=== PATIENT | male | born 1950 | race Caucasian/White ===

== ENCOUNTER 2018-08-20 21:47 | Inpatient (IN) | payer OTHER ==
[~2018-08-20] VITALS: Ht 182.8 cm; Wt 110.5 kg
--- NOTE | ~2018-08-20 | EKG ---
[place], [place] ELECTROCARDIOGRAM REPORT NAME: BAO PAUL UNIT #: [id number] ROOM: 424 DOCTOR: EDITH DRAFT REPORT BIRTHDATE: [birth year] [facility] Test Date: 2018-08-20 Test Time: 22:18:06 Pat Name: BAO PAUL Department: Room: 424 Gender: M Dat Instructor: : 1950 Requested By: SANTOSH ODONNELL Order Number: [id number] Reading MD: Lata Mojica Measurements Intervals [place] Rate: 52 P: 25 [place]: 182 QRS: 64 QRSD: 103 T: 52 QT: 446 QTc: 415 Interpretive Statements Sinus bradycardia No previous ECG available for comparison Electronically Signed On 08-23-2018 11:51:37 PDT by Lata Mojica CM:EKGRPT:ELECTROCARDIOGRAM REPORT [id number] 1151 SANTOSH DELAROSAANY DRAFT REPORT SANTOSH ODONNELL MD
--- NOTE | ~2018-08-20 | EKG ---
[place], [place] ELECTROCARDIOGRAM REPORT NAME: BAO PAUL UNIT #: [id number] ROOM: 424 DOCTOR: EDITH DRAFT REPORT BIRTHDATE: [birth year] [facility] Test Date: 2018-08-20 Test Time: 21:51:12 Pat Name: BAO PAUL Department: Room: 424 Gender: M Electromechanisms Design Drafter: : 1950 Requested By: SANTOSH ODONNELL Order Number: [id number] Reading MD: Lata Mojica Measurements Intervals [place] Rate: 60 P: 60 MD: 175 QRS: 69 QRSD: 106 T: 49 QT: 442 QTc: 442 Interpretive Statements Sinus rhythm Ventricular trigeminy No previous ECG available for comparison Electronically Signed On 08-23-2018 11:51:16 PDT by Lata Mojica CM:EKGRPT:ELECTROCARDIOGRAM REPORT 1151 SANTOSH ODONNELL MD EPIPHANY DRAFT REPORT SANTOSH ODONNELL MD
--- NOTE | ~2018-08-20 | EKG ---
[place], [place] ELECTROCARDIOGRAM REPORT NAME: BAO PAUL UNIT #: [id number] ROOM: 424 DOCTOR: EDITH DRAFT REPORT BIRTHDATE: [birth year] [facility] Test Date: 2018-08-21 Test Time: 00:37:00 Pat Name: BAO PAUL Department: Room: 424 Gender: M Director [employer]: : 1950 Requested By: SANTOSH ODONNELL Order Number: [id number] Reading MD: Lata Mojica Measurements Intervals [place] Rate: 54 P: 57 [place]: 184 QRS: 65 QRSD: 104 T: 64 QT: 464 QTc: 440 Interpretive Statements Sinus rhythm Ventricular trigeminy No previous ECG available for comparison Electronically Signed On 08-23-2018 11:52:36 PDT by Lata Mojica CM:EKGRPT:ELECTROCARDIOGRAM REPORT 0037 1152 SANTOSH ODONNELL MD EPIPHANY DRAFT REPORT SANTOSH ODONNELL MD
--- NOTE | ~2018-08-20 | ST ---
[place], [place] EXERCISE STRESS TEST REPORT NAME: BAO PAUL [facility] #: [id number] UNIT #: [id number] ROOM: 424 DOCTOR: PATRICK EDMONDS,PRAFUL BIRTHDATE: [birth year] DOS: 08/21/2018 TREADMILL TEST REASON FOR TEST: Sinus bradycardia and PVCs and hypertension. PHYSICAL EXAMINATION NECK: Supple. LUNGS: Clear air entry. HEART: Regular rhythm. PROTOCOL: Familia protocol. Total stress time 7 minutes. Maximum heart rate of 138, which is 90% target heart rate. Peak blood pressure 154/80. SYMPTOMS: The patient with chest pain. EKG: Resting EKG showed sinus rhythm, occasional PVCs. Stress EKG showed PVCs and early stress and resolution of PVCs in the mid to peak stress test, no ischemia. Total METs, 8.3 METs. CONCLUSION: Normal treadmill stress test. No chest pain, no ischemia. The patient had PVCs at rest, which were resolved in the stress, achieved 90% target heart rate, 8.3 METs. Low risk Perkins treadmill score of +7. POST-STRESS COMPLICATIONS: None. PRAFUL NGUYEN MD CM:STRESS:EXERCISE STRESS TEST REPORT [id number] PRAFUL NGUYEN MD
--- NOTE | ~2018-08-20 | EKG ---
[place], [place] ELECTROCARDIOGRAM REPORT NAME: BAO PAUL UNIT #: [id number] ROOM: 424 DOCTOR: EDITH DRAFT REPORT BIRTHDATE: [birth year] [facility] Test Date: 2018-08-21 Test Time: 03:38:38 Pat Name: BAO PAUL Department: Room: 424 Gender: M [employer] Source Intelligence Technician: : 1950 Requested By: SANTOSH ODONNELL Order Number: [id number] Reading MD: Lata Mojica Measurements Intervals [place] Rate: 81 P: 132 [place]: 217 QRS: 86 QRSD: 96 T: 60 QT: 433 QTc: 503 Interpretive Statements Sinus rhythm Multiple ventricular premature complexes Borderline prolonged [place] interval Borderline right axis deviation No previous ECG available for comparison Electronically Signed On 08-23-2018 11:53:02 PDT by Lata Mojica CM:EKGRPT:ELECTROCARDIOGRAM REPORT [id number] 1153 SANOTSH ODONNELL MD EPIPHANY DRAFT REPORT SANTOSH ODONNELL MD
[2018-08-20 21:49] VITALS: BP 135/80
[2018-08-20 22:09] LABS: BASO # 0.1 10*3/uL (0.0-0.1); BASO % 0.7 % (0.0-1.0); EOS # 0.2 10*3/uL (0.0-0.4); HEMATOCRIT 46.3 % (42.0-52.0); HEMOGLOBIN 15.6 g/dl (14.0-18.0); LYMPH # 2.8 10*3/uL (1.3-4.4); LYMPH % 36.7 % (27.0-41.0); MEAN CELL VOLUME 90.3 fl (80.0-94.0); MEAN CORPUSCULAR HGB 30.4 pg (27.0-31.0); MEAN CORPUSCULAR HGB CONC 33.7 g/dl (33.0-37.0); MEAN PLATELET VOLUME 10.4 fl (9.6-12.3); MONO # 0.7 10*3/uL (0.1-1.0); MONO % 9.5 % (3.0-9.0); NEUT # 3.8 10*3/uL (2.3-7.9); NEUT % 50.7 % (47.0-73.0); PLATELET COUNT AUTOMATED 203 10*3/uL (130-400); RED BLOOD COUNT 5.13 10*6/uL (4.50-5.90); RED CELL DISTRI WIDTH 12.8 % (0-14.5); WHITE BLOOD COUNT 7.6 10*3/uL (4.8-10.8)
[2018-08-20 22:19] LABS: ACT PARTIAL THROMBO TIME 26.4 SECONDS (20.0-32.1); INTERNATIONAL NORM RATIO 0.9 (2.0-3.5)
[2018-08-20 22:20] VITALS: BP 137/72
[2018-08-20 22:26] LABS: ALBUMIN 3.9 gm/dl (3.1-4.5); ALKALINE PHOSPHATASE 101 U/L (45-117); BUN 12 mg/dl (7-24); CHLORIDE 107 mmol/L (98-107); CREATININE 1.08 mg/dL (0.70-1.30); POTASSIUM 3.6 mmol/L (3.5-5.1); SGOT/AST 12 IU/L (3-35); SGPT/ALT 26 U/L (12-78); SODIUM 142 mmol/L (136-145)
[2018-08-20 22:31] LABS: TROPONIN I < 0.015 ng/ml (<0.045)
[2018-08-20 23:10] VITALS: BP 127/70
[2018-08-20 23:40] VITALS: BP 122/61
[2018-08-21] VITALS (10 sets, daily range): BP systolic 119–137; BP diastolic 49–85
[2018-08-21 04:01] LABS: BASO % 0.7 % (0.0-1.0); EOS # 0.1 10*3/uL (0.0-0.4); HEMATOCRIT 45.4 % (42.0-52.0); HEMOGLOBIN 15.5 g/dl (14.0-18.0); LYMPH # 2.2 10*3/uL (1.3-4.4); LYMPH % 39.3 % (27.0-41.0); MEAN CORPUSCULAR HGB 31.1 pg (27.0-31.0); MEAN CORPUSCULAR HGB CONC 34.1 g/dl (33.0-37.0); MEAN PLATELET VOLUME 10.5 fl (9.6-12.3); MONO # 0.6 10*3/uL (0.1-1.0); MONO % 10.6 % (3.0-9.0); NEUT # 2.6 10*3/uL (2.3-7.9); PLATELET COUNT AUTOMATED 179 10*3/uL (130-400); RED BLOOD COUNT 4.99 10*6/uL (4.50-5.90); RED CELL DISTRI WIDTH 13.1 % (0-14.5); WHITE BLOOD COUNT 5.5 10*3/uL (4.8-10.8)
[2018-08-21 04:13] LABS: ACT PARTIAL THROMBO TIME 26.2 SECONDS (20.0-32.1); INTERNATIONAL NORM RATIO 0.9 (2.0-3.5)
[2018-08-21 04:19] LABS: ALBUMIN 3.7 gm/dl (3.1-4.5); ALKALINE PHOSPHATASE 82 U/L (45-117); BUN 11 mg/dl (7-24); CHLORIDE 108 mmol/L (98-107); CHOLESTEROL 129 mg/dL (<200); CREATININE 1.04 mg/dL (0.70-1.30); HDL CHOLESTEROL 34 mg/dl (40-60); LDL CHOLESTEROL 72 mg/dL (9-159); PHOSPHOROUS 3.8 mg/dL (2.5-4.9); POTASSIUM 3.8 mmol/L (3.5-5.1); SGOT/AST 15 IU/L (3-35); SGPT/ALT 24 U/L (12-78); SODIUM 144 mmol/L (136-145); TOTAL PROTEIN 6.7 gm/dL (6.4-8.2); TRIGLYCERIDES 113 mg/dl (<150); VLDL CHOLESTEROL 23 mg/dL (6-40)
--- NOTE | 2018-08-21 05:56 | NUR ---
A 68, admitted to , under the services of JORGE Keys DO with a diagnosis of BRADYCARDIA. Chief complaint is BRADYCARDIA. Patient arrived via bed from ER. Monitor applied. Initial assessment completed. Vital signs taken and recorded. JORGE KEYS DO notified of admission to the unit. Orders received. See assessment for past medical history, medications and allergies. Patient and/or family oriented to unit. [facility] visitation policy reviewed. Clothing/patient valuable form completed. RAQUEL DONOVAN
[2018-08-21] MEDS ORDERED: NORVASC10 MG PO (06:19)
[2018-08-21] MEDS ORDERED: IRBESARTAN75 M1 PO (06:22)
[2018-08-21] MEDS ORDERED: OMEPRAZOLE40 MG PO (06:23)
[2018-08-21] MEDS ORDERED: FLONASE ALLERG9.9 ML NAS (06:24)
[2018-08-21] MEDS ORDERED: SLO NIACIN PO (06:24)
[2018-08-21] MEDS ORDERED: VITAMIN B121000 MC1 PO (06:25)
--- NOTE | 2018-08-21 07:02 | NUR ---
DR WILSON NOTIFIED THAT PT MED REC IS UP TO DATE PER PT.
--- NOTE | 2018-08-21 07:02 | NUR ---
CONSULT CALLED TO DR ARECHIGA PER PHYSICIAN ORDERS.
[2018-08-21 07:09] LABS: VITAMIN D, 25-HYDROXY 23.3 ng/mL (30-100)
--- NOTE | 2018-08-21 12:05 | NUR ---
PATIENT OFF THE FLOOR FOR CARIDAC STRESS TEST. NO SIGNS OR SYMPTOMS OF DISTRESS. PATIENT TRANSPORTED BY [facility].
--- NOTE | 2018-08-21 12:45 | NUR ---
INFORMED CONSENT OBTAINED FOR STANDARD GXT WITH DR. NGUYEN. RESTING EKG NSR WITH FREQUENT PVC'S WITH QUADRAGEMINY AND TRIGEMINY. HAS A SUPINE HR OF 62 WITH BP OF 124/82 AND HR OF 68 WITH BP OF 130/78 IN STANDING POSITION. PT COMPLETED 7:00 OF A JEAN-PIERRE PROTOCOL WITH COMPLETION OF 1:00 OF STAGE III AT 3.4 MPH AND 14% GRADE. REACHED A PEAK HR OF 138 WHICH IS 91% OF PREDICTED MAX AND A PEAK BP OF 150/80. TEST TERMINATED BECAUSE OF FATIGUE. HAD NO CHEST PAIN OR ANY ST CHANGES. FOR FIRST 5:00 OF EXERCISE HAD EPISODES OF FREQUENT PVC'S WITH BIGEMINY AND COUPLETS. LAST 2:00 OF EXERCISE HAD RARE PVC'S. HAS AN AVERAGE EXERCISE TOLERANCE. LAST RECOVERY HR OF 87 WITH BP OF 140/78. NEGATIVE STANDARD GXT FOR ANY ST CHANGES. RETURNED TO NURSING UNIT VIA WHEELCHAIR AND REPORT GIVEN.
--- NOTE | 2018-08-21 13:15 | NUR ---
PATIENT BACK ON FLOOR TRANSPORTED BY [facility] PERSONEL. NO SIGNS OR SYMPTOMS OF DISTRESS.
--- NOTE | 2018-08-21 16:00 | NUR ---
PATIENT DISCHARGED TO HOME. INFORMATION GIVEN ABOUT HOW TO MAKE FOLLOW UP APPOINTMETNS AND DISCHARGE INSTRUCTION. IV REMOVED AND CATHETER IS INTACT. HEART MONITOR ACCOUNTED FOR.
== END 2018-08-21 16:00 | disposition home or self-care (01) | DRG 310 ==
LOC: ED 21:47 → EDHOLD 08-21 00:06 → ICCU 08-21 04:47 → 4E 08-21 05:38
PROVIDERS: Emergency Medicine Emergency Medical Services; Student in an Organized Health Care Education/Training Program; ADMIT Internal Medicine
DX: R00.1 Bradycardia, unspecified (principal); R73.9 Hyperglycemia, unspecified; R00.8 Other abnormalities of heart beat; E83.41 Hypermagnesemia; I10 Essential (primary) hypertension; E78.5 Hyperlipidemia, unspecified; Z96.649 Presence of unspecified artificial hip joint; E66.09 Other obesity due to excess calories; E87.8 Other disorders of electrolyte and fluid balance, not elsewhere classified; Z90.49 Acquired absence of other specified parts of digestive tract; Z82.49 Family history of ischemic heart disease and other diseases of the circulatory system; Z79.899 Other long term (current) drug therapy; Z68.33 Body mass index [BMI] 33.0-33.9, adult